=== PATIENT | female | born 1945 | race Caucasian/White ===

== ENCOUNTER 2018-10-12 11:25 | Emergency (ER) | payer MEDICARE, OTHER ==
[2018-10-12 11:41] VITALS: BP 147/58
[2018-10-12] MEDS ORDERED: Tetan/Diph/Pertus SYR(Tdap)* 0.5 ML SYR(BOOSTRIX) use SYR IM ONE (11:55)
--- NOTE | 2018-10-12 12:40 | UC ---
Knee Pain HPI - HPI Summary HPI Summary: 73-year-old female who appears younger than her stated age. She was descending steps last evening when she missed the last 2 and fell injuring her left knee and left foot. She has a history of a bunionectomy and her left foot which has screws placed in it. She denies hitting her head, no neck pain and no other injury other than a superficial abrasion to her anterior lower leg. She is unsure of last tetanus immunization. - History of Current Complaint Chief Complaint: UCLowerExtremity Stated Complaint: LT FOOT/KNEE INJURY Time Seen by Provider: 10/12/18 11:48 Hx Obtained From: Patient ?: No Onset/Duration: Sudden Onset Severity Initially: Moderate Severity Currently: Moderate Pain Intensity: 8 Character: Dull, Aching Aggravating Factor(s): Movement, Weight Bearing Alleviating Factor(s): Nothing Associated Signs And Symptoms: Positive: Negative Able to Bear Weight: Yes - Allergies/Home Medications Allergies/Adverse Reactions: Allergies Allergy/AdvReac Type Severity Reaction Status Date / Time Penicillins Allergy Rash Verified 10/12/18 11:33 Sulfa (Sulfonamide Allergy Rash Verified 10/12/18 11:33 Antibiotics) Home Medications: Home Medications Betaxolol-S 0.25%* [Betoptic-S 0.25%*] 1 drop RIGHT EYE BID 10/12/18 [History Confirmed 10/12/18] PMH/Surg Hx/FS Hx/Imm Hx Previously Healthy: Yes Respiratory History: Asthma - Surgical History Surgical History: Yes Surgery Procedure, Year, and Place: LEFT FOOT SURGERY, SINUS SURGERY, BAHA IMPLANT (COCHLEAR BAHA CONNECT SYSTEM - REMOVEABLE EXTERNAL SYSTEM - TO BE REMOVED BEFORE ENTERING INTO MRI ZONE 3/4 - ONCE EXTERNAL PART IS REMOVED PT CAN SAFELY BE SCANNED). 2 C SECTIONS,PARTIAL HYSTERECTOMY. DENTAL SURGERY 2016. BOWEL RESECTION. APPENDECTOMY - Family History Known Family History: Positive: Cardiac Disease, Hypertension - Social History Occupation: Retired Alcohol Use: None Substance Use Type: None Smoking Status (MU): Never Smoked Tobacco Review of Systems All Other Systems Reviewed And Are Negative: Yes Skin: Positive: Other - Superficial abrasion to the anterior portion of her left tib-fib area. Bruising at the base of the left great toe and second toe dorsum of the foot. Motor: Positive: Decreased ROM - Knee pain and foot pain with range of motion therefore did not put her through very much range of motion. Neurovascular: Positive: Negative Musculoskeletal: Positive: Decreased ROM - Bruising at the dorsum of the left foot at the base of the great toe and second toe. Pain left knee. Neurological: Positive: Negative Is Patient Immunocompromised?: No Physical Exam Triage Information Reviewed: Yes Appearance: Well-Appearing, No Pain Distress, Well-Nourished Vital Signs: Initial Vital Signs Temp 98.9 F 10/12/18 11:35 Pulse 60 10/12/18 11:35 Resp 16 10/12/18 11:35 BP 147/58 10/12/18 11:35 Pulse Ox 100 10/12/18 11:35 Vital Signs Reviewed: Yes Musculoskeletal: Positive: Strength Intact, Other: - Pain on palpation left knee , no swelling, oozing, erythema or deformity is noted. Ligaments appear intact. Limited range of motion because of pain. She is able to lift her leg up off of the exam table. Bruising and mild swelling to the dorsum of the left foot at the base of the great toe and second toe, with tenderness on palpation. No deformity is noted. Achilles is intact, ankle is nontender. Neurological: Positive: Alert, Muscle Tone Normal Psychological Exam: Normal Skin: Positive: Other - See above note. Knee Pain Course/Dx - Course Course Of Treatment: Left Knee x-ray: 4 views of the left knee reviewed. There is suggestion of a fracture of the lateral aspect of the patella without significant displacement. No other fractures are noted. No joint effusion is noted. IMPRESSION: There is suggestion of a nondisplaced fracture through the lateral pole patella. No definite joint effusion is noted. Left foot x-ray: 3 views of the left foot are reviewed. There is a comminuted fracture of the proximal phalanx of the great toe. No significant displacement is noted. There is fusion of the proximal end middle phalanx of the second digit. Postoperative changes are noted in the first metatarsal. IMPRESSION: Comminuted fracture which extends into the joint space of the first metatarsal phalangeal joint of the proximal phalanx of the great toe. After review with Mily Huffman and Stu, a posterior leg splint was applied. Patient is to be non-weightbearing and use crutches until she follows up with the orthopedist on [place]. She prefers to see Dr. Chavez because she has been his patient in the past. She was also given Percocet 10 tablets for severe pain. - Differential Dx/Diagnosis Provider Diagnosis: Fracture of patella, Fracture of left great toe Discharge - Sign-Out/Discharge Documenting (check all that apply): Patient Departure All imaging exams completed and their final reports reviewed: Yes - Discharge Plan Condition: Fair Disposition: HOME Prescriptions: Oxycodone HCl/Acetaminophen [Percocet 2.5-325 mg (NF)] 1 tab PO Q6H PRN #10 tab MDD 6 PRN Reason: Pain Patient Education Materials: Toe Fracture (ED), Patellar Fracture (ED) Referrals: Rico Chavez MD [Medical Doctor] - Jerry Richmond MD [Primary Care Provider] - Additional Instructions: Nonweightbearing until seen by the orthopedist on Sunday. Call Sunday to make an appointment. Apply ice to the sore areas intermittently throughout the day on 20 minutes off 20 minutes. May take Tylenol every 4 hours for pain and alternate with Motrin every 8 hours. Do not remove the splint until you are seen by the orthopedist. You may take one or 2 tablets of Percocet every 4 hours for severe pain however realize it does have Tylenol in it therefore do not take it within 4 hours of taking regular Tylenol. - Billing Disposition and Condition Condition: FAIR Disposition: Home
== END 2018-10-12 13:25 | disposition home or self-care (01) ==
LOC: UCEAST 11:25
DX: S82.002A Unspecified fracture of left patella, initial encounter for closed fracture (principal); S92.402A Displaced unspecified fracture of left great toe, initial encounter for closed fracture; W10.9XXA Fall (on) (from) unspecified stairs and steps, initial encounter; Y92.9 Unspecified place or not applicable; J45.909 Unspecified asthma, uncomplicated; Z88.0 Allergy status to penicillin; Z88.2 Allergy status to sulfonamides
CPT/HCPCS: 90715; 99212; G0463